=== PATIENT | male | born 1985 | race Caucasian/White ===

== ENCOUNTER 2016-11-22 10:48 | Emergency (ER) | payer SELFPAY ==
[~2016-11-22] VITALS: Ht 172.7 cm; Wt 110.0 kg
[~2016-11-22 10:48] MED LIST: DICL75TA5 PO; LEDI1TAB PO; OXYC1TAB8 PO; PROM25TA7 PO
[2016-11-22 10:50] VITALS: Ht 172.7 cm; Wt 110.0 kg
--- OUTSIDE RECORDS SUMMARY | 2016-11-22 10:53 | XMS REPORT | Continuity of Care Document ---
Author Author [facility] Organization [facility] Address Unknown Phone Unavailable Support Name Relationship Address Phone OTHER Caregiver Unknown [phone] ARLYN CAMACHO MD Caregiver [address] [place] [address] [place] [phone] DINA RAMOS Next Of Kin [id number] [place] [address] Insurance Providers Payer Name Policy Number Subscriber Name Relationship Self Pay Jose Alberto Ramos 16 Self Advance Directives Directive Response Recorded Date/Time Advanced Directives Type None 10/31/14 7:40am Problems Medical Problems Problem Onset Date Status RUQ pain Unknown Active RUQ pain Unknown Active Medications Medication Dose Route Sig Days/Qty Instructions Order Date Discontinued Date Status Tramadol HCl 100 Mg PO THREE TIMES A DAY PRN PAIN Take 2 (50 mg) tablets , by mouth, every 6 hours as needed 10/31/14 Active Promethazine HCl 1 Tab-Cap PO Every 6 Hours For NAUSEA &/OR VOMITING 15 Qty 10/31/14 Active Tramadol HCl 50 Mg PO Q6H/0300,0900,1500,2100 For PAIN 10 Qty 10/31/14 Active Social History Social History Problem Response Recorded Date/Time Hx Alcohol Use No 2014 7:47am Query Response Start Date Stop Date Smoking Status Former smoker Hospital Discharge Instructions No hospital discharge instructions. Plan of Care No plan of care. Functional Status Query Response Date Recorded Physical Hygiene Self 2014 7:47am Disabilities None 2014 7:47am Devices Used None 2014 7:47am Dressing Self 2014 7:47am Ambulation Self 2014 7:47am Diet Self 2014 7:47am Mental Status Alert Oriented 2014 11:53am Disabilities None 2014 7:47am Devices Used None 2014 7:47am Physical Hygiene Self 2014 7:47am Dressing Self 2014 7:47am Ambulation Self 2014 7:47am Diet Self 2014 7:47am Allergies, Adverse Reactions, Alerts Allergen Type Severity Reaction Status Last Updated Morphine Allergy Unknown Active 10/31/14 PCN Allergy Unknown Active 10/31/14 Immunizations No immunization records. Vital Signs Acute Vital Signs Vital Response Date/Time Temperature (Fahrenheit) 96.9 deg F (96.8 - 99.1) Temperature (Calculated Celsius) 36.25073 degrees C (36.0 - 37.3) Pulse Rate (adult) 76 bpm (60 - 100) Respiratory Rate 20 breaths/min (10 - 20) O2 Sat by Pulse Oximetry 96 % (90 - 100) Blood Pressure 95/49 mm Hg Height 5 ft 8 in Weight 190 lb Body Mass Index 28.0 kg/m^2 Results Test Source Date Result Interp. Ref. Range Comments Urinalysis Comment 2014 8:42am Microscopic not ind. - Has specimen been collected/obtained? Y Urine Blood 2014 8:42am Negative - Has specimen been collected/obtained? Y Urine Bilirubin 2014 8:42am Negative - Has specimen been collected/obtained? Y Urine Urobilinogen 2014 8:42am 0.2 EU/DL - Has specimen been collected/obtained? Y Urine Ketones 2014 8:42am Negative - Has specimen been collected/obtained? Y Urine Glucose (UA) 2014 8:42am Negative - Has specimen been collected/obtained? Y Urine Protein 2014 8:42am Negative - Has specimen been collected/obtained? Y Urine Nitrite 2014 8:42am Negative - Has specimen been collected/obtained? Y Urine Leukocyte Esterase 2014 8:42am Negative - Has specimen been collected/obtained? Y Urine pH 2014 8:42am 5.0 - Has specimen been collected/ obtained? Y Urine Specific [place] 2014 8:42am >=1.030 H - Has specimen been collected/obtained? Y Urine Turbidity 2014 8:42am Clear - Has specimen been collected/obtained? Y Urine Color 2014 8:42am Yellow - Has specimen been collected/obtained? Y Urine Collection Type 2014 8:42am Cleancatch-midstream - Has specimen been collected/obtained? Y Lipase 2014 8:16am 85 U/L N 23-300 Amylase Level 2014 8:16am 50 U/L N 30-110 Alanine Aminotransferase (ALT/SGPT) 2014 8:16am 90 U/L H 21 -72 Aspartate Amino Transf (AST/SGOT) 2014 8:16am 49 U/L N 17- 59 Albumin/Globulin Ratio 2014 8:16am 1.2 RATIO N 1.1-2.2 Globulin 2014 8:16am 3.4 G/DL N 2.4-3.6 Albumin 2014 8:16am 4.0 G/DL N 3.5-5.0 Total Protein 2014 8:16am 7.4 G/DL N 6.3-8.2 Alkaline Phosphatase 2014 8:16am 76 U/L N 38-126 Total Bilirubin 2014 8:16am 0.60 MG/DL N 0.20-1.30 Calcium Level 2014 8:16am 9.4 MG/DL N 8.4-10.2 Calculated Osmolality 2014 8:16am 276 MOSM/KG N 261-280 Glucose Level 2014 8:16am 124 MG/DL H 75-110 Glomerular Filtration Rate Calc 2014 8:16am 113 - BUN/Creatinine Ratio 2014 8:16am 16 RATIO N 6-26 Creatinine 2014 8:16am 0.8 MG/DL N 0.8-1.5 Blood Urea Nitrogen 2014 8:16am 13.0 MG/DL N 9-20 Anion Gap 2014 8:16am 8 MEQ/L N 5-15 Carbon Dioxide Level 2014 8:16am 29 MEQ/L N 22-30 Chloride Level 2014 8:16am 106 MEQ/L N 98-107 Potassium Level 2014 8:16am 3.6 MEQ/L N 3.6-5 Sodium Level 2014 8:16am 143 MEQ/L N 134-144 Turbidity 2014 8:16am < 20 0-20 Chemistry Specimen Hemolysis 2014 8:16am 16 N 0-25 0-25: No Hemolysis.26-70: Slight Hemolysis - can falsely elevate K and Urine Protein. 71-285: Moderate Hemolysis - can falsely elevate K, Troponin I, CA 19-9, PTH, CSF GLucose, and Urine Protein, and can falsely decrease Phenytoin. 286-999: Gross Hemolysis - can falsely elevate K, Troponin I, CA 19-9, PTH, CSF Glucose, and Urine Protine, and can falsely decrease Phenytoin. Recommend specimen recollection. Icterus Index 2014 8:16am < 2 0-7 Immature Granulocyte # (Auto) 2014 8:16am 0.02 T/MM3 N 0.00 -0.03 Basophils # (Auto) 2014 8:16am 0.0 T/MM3 N 0-0.2 Eosinophils # (Auto) 2014 8:16am 0.1 T/MM3 N 0-0.5 Monocytes # (Auto) 2014 8:16am 0.7 T/MM3 N 0-0.8 Lymphocytes # (Auto) 2014 8:16am 1.8 T/MM3 N 1-4.8 Neutrophils # (Auto) 2014 8:16am 3.9 T/MM3 N 1.8-7.7 Immature Granulocyte % (Auto) 2014 8:16am 0.3 % N 0.0-0.5 Basophils (%) (Auto) 2014 8:16am 0.3 % N 0-2 Eosinophils (%) (Auto) 2014 8:16am 1.8 % N 0-4 Monocytes (%) (Auto) 2014 8:16am 10.0 % H 0-9.0 Lymphocytes (%) (Auto) 2014 8:16am 27.1 % N 23-45 Neutrophils (%) (Auto) 2014 8:16am 60.5 % N 33-66 Mean Platelet Volume 2014 8:16am 9.2 UM3 L 9.4-12.4 Platelet Count 2014 8:16am 164 T/MM3 N 130-400 RDW Standard Deviation 2014 8:16am 43.3 FL N 36.9-50.2 Mean Corpuscular Hemoglobin Concent 2014 8:16am 34.0 GM/DL N 31-37 Mean Corpuscular Hemoglobin 2014 8:16am 32.1 UUG N 26-34 Mean Corpuscular Volume 2014 8:16am 94.4 UM3 N 80-100 Hematocrit 2014 8:16am 44.1 % N 41-53 Hemoglobin 2014 8:16am 15.0 GM/DL N 13.5-17.5 Red Blood Count 2014 8:16am 4.67 M/MM3 N 4.50-5.90 White Blood Count 2014 8:16am 6.5 T/MM3 N 4.5-11.0 Name: JOSE ALBERTO RAMOS Unit #: [id number] : 1985 Sex: M Loc / Svc: ED DOS: 10/31/14 Signed Report #: [id number] DIAGNOSTIC IMAGING REPORT TYPE OF EXAM: ABDOMEN ACUTE (INC. CHEST) Dictated By: LEIGHANN SANDY MD Indication: ITS.REASON: ABD PAIN ABDOMEN ACUTE (INC. CHEST): Comparison: FINDINGS: The lungs are clear. There is no abnormal airspace opacity, pleural effusion or pneumothorax identified. The heart size, pulmonary vasculature and mediastinum are within normal limits. There is no free air on the upright view. The bowel gas pattern demonstrates a few air-fluid levels centrally in the periumbilical region within nondilated bowel. Gas is seen throughout the large bowel to the level of the rectum. Moderate stool is seen throughout the colon. Surgical clips are again seen in the right upper quadrant consistent with prior cholecystectomy. The bony structures are grossly unremarkable. IMPRESSION: 1. No acute cardiopulmonary abnormality. 2. There is mild localized ileus pattern in the periumbilical region for which follow-up is recommended as indicated clinically. 3. Prior cholecystectomy.. . Procedures No known history of procedures. Encounters Encounter Location Date/Time Departed Emergency Room [facility] 10/31/14 7:34am Recent Diagnosis
--- OUTSIDE RECORDS SUMMARY | 2016-11-22 10:53 | XMS REPORT | Referral Summary ---
Author Author [facility] Organization [facility] Address Unknown Phone Unavailable Care Team Providers Care Food Mixer Repairer Name Role Phone Tosin Argueta Primary Care Physician [phone] Encounter VC Date(s): 04/16/15 - 04/16/15 [facility] [address] [place], [place] [address] Final: ABDOMINAL PAIN, UNSPECIFIED SITE Discharge Disposition: Without Being Seen Attending Physician: Tom Loo MD Admitting Physician: Tom Loo MD Vital Signs Most recent to 1 oldest [Reference Range]: Temperature Oral 36.9 degC [35.8-37.3 degC] (04/16/15 1:05 PM) Peripheral Pulse 102 bpm Rate [60-100 bpm] *HI* (04/16/15 1:05 PM) Respiratory Rate 14 br/min [14-20 br/min] (04/16/15 1:05 PM) Blood Pressure 125/87 mmHg [90-140/60-90 mmHg] (04/16/15 1:05 PM) SpO2 96 % (04/16/15 1:05 PM) Problem List Condition Effective Dates Status Health Status Informant Hepatitis/Jaundice(C Resolved onfirmed) IBS(Confirmed) Resolved Kidney Resolved disease/Stones(Confi rmed) Obesity(Confirmed) Active patient Sexually transmitted Resolved disease(Confirmed) Tobacco Active patient user(Confirmed) Ulcer(Confirmed) Resolved Allergies, Adverse Reactions, Alerts Substance Reaction Severity Status morphine rash Active penicillin Adverse Reaction Active Medications doxepin 10 mg oral capsule 10 mg 1 caps, Oral, Bedtime (once a day), # 30 caps, 5 Refill(s), Pharmacy: [facility] 1 caps Oral Bedtime (once a day) Start Date: 05/12/15 Status: Ordered Percocet 10/325 oral tablet 1 tabs, Oral, q4hr, as needed for pain, # 10 tabs, 0 Refill(s) Start Date: 05/12/15 Status: Ordered promethazine 25 mg, Oral, q6hr, 0 Refill(s) Start Date: 04/04/15 Status: Ordered traMADol 50 mg oral tablet 2 tabs, Oral, TID, 0 Refill(s) Start Date: 05/26/14 Status: Ordered Results No data available for this section Immunizations No data available for this section Procedures Procedure Date Related Diagnosis Body Site ACL injury tear1 Cholecystectomy MCL - Repair of medial collateral ligament2 1left knee 2left knee Social History Social History Type Response Smoking Status Current every day smoker; Tobacco use per day: Pt states he is currently smoking 2 cigarettes daily. Assessment and Plan No data available for this section
--- OUTSIDE RECORDS SUMMARY | 2016-11-22 10:53 | XMS REPORT | Referral Summary ---
Author Author [facility] Organization [facility] Address Unknown Phone Unavailable Care Team Providers Care Seed Cutter Name Role Phone CesarkavonTosin Primary Care Physician [phone] Encounter Date(s): 05/12/15 - 05/12/15 [facility] [address] [place], [place] [address] Discharge Diagnosis: Hepatitis C Discharge Diagnosis: Irritable bowel syndrome Discharge Disposition: 01-Home or Self Care Attending Physician: Tyrel Yanez MD Admitting Physician: Tyrel Yanez MD Vital Signs Most recent to 1 oldest [Reference Range]: Peripheral Pulse 84 bpm Rate [60-100 bpm] (05/12/15 2:52 PM) Blood Pressure 122/76 mmHg [90-140/60-90 mmHg] (05/12/15 2:52 PM) Problem List Condition Effective Dates Status [...] day), # 30 caps, 5 Refill(s), Pharmacy: [facility] 1 caps Oral Bedtime (once [...] smoking 2 cigarettes daily. Assessment and Plan Extracted from: Title: Ambulatory Patient Education Author: Tyrel Yanez MD Date: [facility] Hepatitis C Hepatitis C is a viral infection of the liver. Infection may go undetected for months or years because symptoms may be absent or very mild. Chronic liver disease is the main danger of hepatitis C. This may lead to scarring of the liver (cirrhosis), liver failure, and liver cancer. CAUSES Hepatitis C is caused by the hepatitis C virus (HCV). Formerly, hepatitis C infections were most commonly transmitted through blood transfusions. In the early , routine testing of donated blood for hepatitis C and exclusion of blood that tests positive for HCV began. Now, HCV is most commonly transmitted from person to person through injection drug use, sharing needles, or sex with an infected person. A caregiver may also get the infection from exposure to the blood of an infected patient by way of a cut or needle stick. SYMPTOMS Acute Phase Many cases of acute HCV infection are mild and cause few problems.Some people may not even realize they are sick.Symptoms in others may last a few weeks to several months and include: Feeling very tired. Loss of appetite. Nausea. Vomiting. Abdominal pain. Dark yellow urine. Yellow skin and eyes (jaundice). Itching of the skin. Chronic Phase Between 50% to 85% of people who get HCV infection become "chronic carriers." They often have no symptoms, but the virus stays in their body. They may spread the virus to others and can get long-term liver disease. Many people with chronic HCV infection remain healthy for many years. However, up to 1 in 5 chronically infected people may develop severe liver diseases including scarring of the liver (cirrhosis), liver failure, or liver cancer. DIAGNOSIS Diagnosis of hepatitis C infection is made by testing blood for the presence of hepatitis C viral particles called RNA. Other tests may also be done to measure the status of current liver function, exclude other liver problems, or assess liver damage. TREATMENT Treatment with many antiviral drugs is available and recommended for some patients with chronic HCV infection. Drug treatment is generally considered appropriate for patients who: Are 18 years of age or older. Have a positive test for HCV particles in the blood. Have a liver tissue sample (biopsy) that shows chronic hepatitis and significant scarring (fibrosis). Do not have signs of liver failure. Have acceptable blood test results that confirm the wellness of other body organs. Are willing to be treated and conform to treatment requirements. Have no other circumstances that would prevent treatment from being recommended (contraindications). All people who are offered and choose to receive drug treatment must understand that careful medical follow up for many months and even years is crucial in order to make successful care possible. The goal of drug treatment is to eliminate any evidence of HCV in the blood on a long-term basis. This is called a "sustained virologic response" or SVR. Achieving a SVR is associated with a decrease in the chance of life-threatening liver problems, need for a liver transplant, liver cancer rates, and liver-related complications. Successful treatment currently requires taking treatment drugs for at least 24 weeks and up to 72 weeks. An injected drug (interferon) given weekly and an oral antiviral medicine taken daily are usually prescribed. Side effects from these drugs are common and some may be very serious. Your response to treatment must be carefully monitored by both you and your caregiver throughout the entire treatment period. PREVENTION There is no vaccine for hepatitis C. The only way to prevent the disease is to reduce the risk of exposure to the virus. Avoid sharing drug needles or personal items like toothbrushes, razors, and nail clippers with an infected person. Healthcare workers need to avoid injuries and wear appropriate protective equipment such as gloves, gowns, and face masks when performing invasive medical or nursing procedures. HOME CARE INSTRUCTIONS To avoid making your liver disease worse: Strictly avoid drinking alcohol. Carefully review all new prescriptions of medicines with your caregiver. Ask your caregiver which drugs you should avoid. The following drugs are toxic to the liver, and your caregiver may tell you to avoid them: Isoniazid. Methyldopa. Acetaminophen. Anabolic steroids (muscle-building drugs). Erythromycin. Oral contraceptives ( control pills). Check with your caregiver to make sure medicine you are currently taking will not be harmful. Periodic blood tests may be required. Follow your caregiver's advice about when you should have blood tests. Avoid a sexual relationship until advised otherwise by your caregiver. Avoid activities that could expose other people to your blood. Examples include sharing a toothbrush, nail clippers, razors, and needles. Bed rest is not necessary, but it may make you feel better. Recovery time is not related to the amount of rest you receive. This infection is contagious. Follow your caregiver's instructions in order to avoid spread of the infection. SEEK IMMEDIATE MEDICAL CARE IF: You have increasing fatigue or weakness. You have an oral temperature above 102 F (38.9 C), not controlled by medicine. You develop loss of appetite, nausea, or vomiting. You develop jaundice. You develop easy bruising or bleeding. You develop any severe problems as a result of your treatment. MAKE SURE YOU: Understand these instructions. Will watch your condition. Will get help right away if you are not doing well or get worse. Document Released: 08/22/2001 Document Revised: 11/16/2012 Document Reviewed: [facility] Patient Information 2015 [employer]. This information is not intended to replace advice given to you by your health care provider. Make sure you discuss any questions you have with your health care provider. No follow up information was provided. Extracted from: Title: GI Office Visit Note Author: Tyrel Yanez MD Date: 05/12/15 Assessment/Plan Impression: 1. Hepatitis Cwith excellent response to treatment 2. Abdominal discomfort and diarrheathis appears to be an irritable bowel type problem given thenegative major workup he has had Plan:I discussed with the patient is excellent news hepatitis C has cleared. We do need to check his viral level again in 3 months to make sure that he did get a sustained response. From the standpoint of his abdominal discomfort and diarrheaI cannot think of further workup is likely to be of help. He's had major workup in the past with upper endoscopy colonoscopyand has even hadhis gallbladder removed. He had an upper GI and small bowel series as wellwhen I first saw whitney mcbride that was unremarkable. His blood work has all been unremarkable. I discussed with him that I think this has to be an irritable bowel type problem. Is been no evidence of anyintestinal pathology. I'm going torestart him on some doxepin at 10 mg at night and we' ll slowly increase that and see if we can help with the discomfort. I told him I did not make it was a good idea to be on any pain medication
--- OUTSIDE RECORDS SUMMARY | 2016-11-22 10:53 | XMS REPORT | Continuity of Care Document ---
Author Author [facility] Organization [facility] Address Unknown Phone Unavailable Allergies Active Description Code Type Severity Reaction Onset Reported/Identified Relationship to Patient Clinical Status Yes Penicillins Penicillins Drug Allergy Unknown N/A 11/16/2011 Yes penicillin NKMA N/A Adverse Reaction 01/04/2014 Yes penicillin NKMA N/A Adverse Reaction 01/04/2014 Yes morphine NKMA N/A rash 04/04/2015 Yes morphine NKMA N/A rash 04/04/2015 Medications Problems Date Dx Coded Attending Type Code Diagnosis Diagnosed By 04/19/2015 Tom Loo MD Reason 789.00 ABDOMINAL PAIN, UNSPECIFIED SITE Procedures Results Test Result Range URINALYSIS, ROUTINE - 04/16/15 16:19 UA LEUKOCYTE ESTERASE DIPSTICK NEGATIVE NEGATIVE UA NITRITE DIPSTICK NEGATIVE NEGATIVE UA PROTEIN DIPSTICK NEGATIVE NEGATIVE UA GLUCOSE DIPSTICK NEGATIVE NEGATIVE UA KETONE DIPSTICK NEGATIVE NEGATIVE UA UROBILINOGEN DIPSTICK NORMAL NORMAL UA BILIRUBIN DIPSTICK NEGATIVE NEGATIVE UA BLOOD DIPSTICK NEGATIVE NEGATIVE UA SPECIFIC GRAVITY 1.025 1.015-1.025 UR PH 6.0 5.0-7.0 Microbiology CHEM/HEM PROFILE-BEDSIDE - 04/16/15 16:27 POTASSIUM 4.1 mmol/L 3.5-5.3 METHOD Bedside ANION GAP 15 mmol/L 10-20 METHOD Bedside GLUCOSE 91 mg/dL 70-99 BLOOD UREA NITROGEN 7 mg/dL 7-20 CREATININE 1.0 mg/dL 0.7-1.3 HEMOGLOBIN 15.3 gm/dL 14.0-18.0 HEMATOCRIT 45.0 % 40.0-54.0 SODIUM 141 mmol/L 135-148 CHLORIDE 105 mmol/L 98-110 CARBON DIOXIDE 26 mmol/L 21-32 CALCIUM IONIZED 4.9 mg/dL 4.5-5.3 Microbiology Encounters ACCT No. Visit Date/Time Discharge Status Pt. Type Provider Facility Loc./Unit Complaint [id number] 04/16/2015 14:48:00 2014 18:54:00 DIS Emergency Jesus Alberto CHEEMA, [facility] [id number] 11/20/2011 11:18:00 2011 23:59:59 [facility] Outpatient
--- OUTSIDE RECORDS SUMMARY | 2016-11-22 10:53 | XMS REPORT | Continuity of Care Document ---
Author Author [facility] Organization [facility] Address Unknown Phone Unavailable Support Name Relationship Address Phone CAREY HOPSON DO Caregiver [address] [place] [address] MALINI FROST MD Caregiver [address] [place] [address] [place] [address] OTHER Caregiver Unknown [phone] DINA RAMOS Next Of Kin [address] [place] [address] Insurance Providers Payer Name Policy Number Subscriber Name Relationship Self Pay Jose Alberto Ramos 16 Self Problems Medical Problems Problem Onset Date Status RUQ pain Unknown Active RUQ pain Unknown Active RUQ pain Unknown Active Nausea & vomiting Unknown Active Fracture of fifth metacarpal bone of right hand Unknown Active Elevated LFTs Unknown Active Abdominal pain Unknown Active Fracture of fifth metacarpal bone of right hand Unknown Active Medications Medication Dose Route Sig Days/Qty Instructions Order Date Discontinued Date Status Promethazine HCl 1 Tab-Cap PO Every 6 Hours For NAUSEA &/OR VOMITING 15 Qty 10/31/14 Active Tramadol HCl 50 Mg PO Q6H/0300,0900,1500,2100 For PAIN 10 Qty Take 1 tablet, by mouth, every 6 hours. 10/31/14 Active Tramadol HCl 50 Mg PO Q6H/0300,0900,1500,2100 For PAIN 20 Qty 11/14/14 Active Ondansetron 4 Mg PO EVERY 4 HOURS For NAUSEA 12 Qty Oral Disintegrating Tablet 11/14/14 Active Social History Social History Problem Response Recorded Date/Time Hx Substance Use Y METH LAST 09/04/14 11/14/2014 10:06am Hx Alcohol Use No 11/14/2014 10:06am Query Response Start Date Stop Date Smoking Status Current every day smoker Hospital Discharge Instructions No hospital discharge instructions. Plan of Care No plan of care. Functional Status Query Response Date Recorded Physical Hygiene Self November 14, 2014 10:06am Disabilities None November 14, 2014 10:06am Devices Used None November 14, 2014 10:06am Dressing Self November 14, 2014 10:06am Ambulation Self November 14, 2014 10:06am Diet Self November 14, 2014 10:06am Mental Status Alert Oriented November 14, 2014 10:06am Disabilities None November 14, 2014 10:06am Devices Used None November 14, 2014 10:06am Physical Hygiene Self November 14, 2014 10:06am Dressing Self November 14, 2014 10:06am Ambulation Self November 14, 2014 10:06am Diet Self November 14, 2014 10:06am Allergies, Adverse Reactions, Alerts Allergen Type Severity Reaction Status Last Updated Penicillin Allergy Unknown Active 11/14/14 Morphine Allergy Unknown Active 11/14/14 Immunizations Name Given Type Hx Influenza Vaccination Y 06/21 Historical Hx Influenza Vaccination Y 06/21 Historical Vital Signs Acute Vital Signs Vital Response Date/Time Temperature (Fahrenheit) 97.1 deg F (96.8 - 99.1) Temperature (Calculated Celsius) 36.57001 degrees C (36.0 - 37.3) Pulse Rate (adult) 75 bpm (60 - 100) Respiratory Rate 16 breaths/min (10 - 20) O2 Sat by Pulse Oximetry 96 % (90 - 100) Blood Pressure 111/70 mm Hg Height 5 ft 8 in Weight 193 lb Body Mass Index 29.0 kg/m^2 Results Test Source Date Result Interp. Ref. Range Comments Alanine Aminotransferase (ALT/SGPT) November 14, 2014 10:42am 140 U/L H 21- 72 Albumin November 14, 2014 10:42am 4.2 G/DL N 3.5-5.0 Albumin/Globulin Ratio November 14, 2014 10:42am 1.2 RATIO N 1.1-2.2 Alkaline Phosphatase November 14, 2014 10:42am 90 U/L N 38-126 Amylase Level November 14, 2014 10:42am 40 U/L N 30-110 Anion Gap November 14, 2014 10:42am 14 MEQ/L N 5-15 Aspartate Amino Transf (AST/SGOT) November 14, 2014 10:42am 64 U/L H 17-59 BUN/Creatinine Ratio November 14, 2014 10:42am 15 RATIO N 6-26 Basophils # (Auto) November 14, 2014 10:42am 0.0 T/MM3 N 0-0.2 Basophils (%) (Auto) November 14, 2014 10:42am 0.3 % N 0-2 Blood Urea Nitrogen November 14, 2014 10:42am 12.0 MG/DL N 9-20 Calcium Level November 14, 2014 10:42am 9.5 MG/DL N 8.4-10.2 Calculated Osmolality November 14, 2014 10:42am 278 MOSM/KG N 261-280 Carbon Dioxide Level November 14, 2014 10:42am 25 MEQ/L N 22-30 Chemistry Specimen Hemolysis November 14, 2014 10:42am < 15 0-25 0-25: No Hemolysis.26-70: Slight Hemolysis - can falsely elevate K and Urine Protein. 71-285: Moderate Hemolysis - can falsely elevate K, Troponin I, CA 19-9, PTH, CSF GLucose, and Urine Protein, and can falsely decrease Phenytoin. 286-999: Gross Hemolysis - can falsely elevate K, Troponin I, CA 19-9, PTH, CSF Glucose, and Urine Protine, and can falsely decrease Phenytoin. Recommend specimen recollection. Chloride Level November 14, 2014 10:42am 106 MEQ/L N 98-107 Creatinine November 14, 2014 10:42am 0.8 MG/DL N 0.8-1.5 Eosinophils # (Auto) November 14, 2014 10:42am 0.1 T/MM3 N 0-0.5 Eosinophils (%) (Auto) November 14, 2014 10:42am 1.7 % N 0-4 Globulin November 14, 2014 10:42am 3.5 G/DL N 2.4-3.6 Glomerular Filtration Rate Calc November 14, 2014 10:42am 113 - Glucose Level November 14, 2014 10:42am 89 MG/DL N 75-110 Hematocrit November 14, 2014 10:42am 45.0 % N 41-53 Hemoglobin November 14, 2014 10:42am 15.3 GM/DL N 13.5-17.5 Icterus Index November 14, 2014 10:42am < 2 0-7 Immature Granulocyte # (Auto) November 14, 2014 10:42am 0.01 T/MM3 N 0.00- 0.03 Immature Granulocyte % (Auto) November 14, 2014 10:42am 0.2 % N 0.0-0.5 Lipase November 14, 2014 10:42am 71 U/L N 23-300 Lymphocytes # (Auto) November 14, 2014 10:42am 1.5 T/MM3 N 1-4.8 Lymphocytes (%) (Auto) November 14, 2014 10:42am 25.5 % N 23-45 Mean Corpuscular Hemoglobin November 14, 2014 10:42am 32.3 UUG N 26-34 Mean Corpuscular Hemoglobin Concent November 14, 2014 10:42am 34.0 GM/DL N 31-37 Mean Corpuscular Volume November 14, 2014 10:42am 95.1 UM3 N 80-100 Mean Platelet Volume November 14, 2014 10:42am 9.8 UM3 N 9.4-12.4 Monocytes # (Auto) November 14, 2014 10:42am 0.9 T/MM3 H 0-0.8 Monocytes (%) (Auto) November 14, 2014 10:42am 14.3 % H 0-9.0 Neutrophils # (Auto) November 14, 2014 10:42am 3.5 T/MM3 N 1.8-7.7 Neutrophils (%) (Auto) November 14, 2014 10:42am 58.0 % N 33-66 Platelet Count November 14, 2014 10:42am 173 T/MM3 N 130-400 Potassium Level November 14, 2014 10:42am 4.0 MEQ/L N 3.6-5 RDW Standard Deviation November 14, 2014 10:42am 44.2 FL N 36.9-50.2 Red Blood Count November 14, 2014 10:42am 4.73 M/MM3 N 4.50-5.90 Sodium Level November 14, 2014 10:42am 145 MEQ/L H 134-144 Total Bilirubin November 14, 2014 10:42am 0.70 MG/DL N 0.20-1.30 Total Protein November 14, 2014 10:42am 7.7 G/DL N 6.3-8.2 Turbidity November 14, 2014 10:42am < 20 0-20 Urinalysis Comment November 14, 2014 11:48am Microscopic not ind. - Has specimen been collected/obtained? Y Urine Bilirubin November 14, 2014 11:48am Negative - Has specimen been collected/obtained? Y Urine Blood November 14, 2014 11:48am Negative - Has specimen been collected/obtained? Y Urine Collection Type November 14, 2014 11:48am Cleancatch-midstream - Has specimen been collected/obtained? Y Urine Color November 14, 2014 11:48am Yellow - Has specimen been collected/obtained? Y Urine Glucose (UA) November 14, 2014 11:48am Negative - Has specimen been collected/obtained? Y Urine Ketones November 14, 2014 11:48am Negative - Has specimen been collected/obtained? Y Urine Leukocyte Esterase November 14, 2014 11:48am Negative - Has specimen been collected/obtained? Y Urine Nitrite November 14, 2014 11:48am Negative - Has specimen been collected/obtained? Y Urine Protein November 14, 2014 11:48am Negative - Has specimen been collected/obtained? Y Urine Specific [place] November 14, 2014 11:48am 1.020 - Has specimen been collected/obtained? Y Urine Turbidity November 14, 2014 11:48am Clear - Has specimen been collected/obtained? Y Urine Urobilinogen November 14, 2014 11:48am 0.2 EU/DL - Has specimen been collected/obtained? Y Urine pH November 14, 2014 11:48am 7.5 - Has specimen been collected/ obtained? Y White Blood Count November 14, 2014 10:42am 6.0 T/MM3 N 4.5-11.0 Name: JOSE ALBERTO RAMOS Unit #: [id number] : 1985 Sex: M Loc / Svc: ED DOS: 11/14/14 Signed Report #: [id number] DIAGNOSTIC IMAGING REPORT TYPE OF EXAM: ABDOMEN ACUTE (INC. CHEST) Dictated By: BRIANNA SALINAS MD Indication: ITS.REASON: RUQ pain / History Hep C ABDOMEN ACUTE (INC. CHEST): Comparison: 2014 FINDINGS: The lungs are clear. There is no abnormal airspace opacity, pleural effusion or pneumothorax identified. Calcified granulomas. The heart size, pulmonary vasculature and mediastinum are within normal limits. There is no free air on the upright view. The bowel gas pattern is nonobstructive and nonspecific. Gas is seen in nondilated small and large bowel to the level of the rectum. Moderate stool is seen throughout the colon. The bony structures are grossly unremarkable. Cholecystectomy clips. IMPRESSION: 1. No acute cardiopulmonary abnormality. 2. No evidence of acute obstruction or free air. No significant changes in the appearance of the chest or abdomen. . Procedures Procedure Status Date Provider(s) HYDRATE IV INFUSION ADD-ON completed 10/31/14 THER/PROPH/DIAG INJ IV PUSH completed 10/31/14 TX/PRO/DX INJ NEW DRUG ADDON completed 10/31/14 TX/PRO/DX INJ NEW DRUG ADDON completed 10/31/14 Encounters Encounter Location Date/Time Departed Emergency Room [facility] 11/14/14 9:56am Departed Emergency Room [facility] 10/31/14 7:34am Recent Diagnosis
--- OUTSIDE RECORDS SUMMARY | 2016-11-22 10:53 | XMS REPORT | Referral Summary ---
Author Author [facility] Organization [facility] Address Unknown Phone Unavailable Care Team Providers Care Concrete Mixer Name Role Phone CesarkavonTosin Primary Care Physician [phone] Encounter VC Date(s): 04/04/15 - 04/04/15 [facility] [address] [place] [address] Discharge Diagnosis: Hepatitis-C Discharge Disposition: 01-Home or Self Care Attending Physician: Tyrel Yanez MD Admitting Physician: Tyrel Yanez MD Vital Signs Most recent to 1 oldest [Reference Range]: Peripheral Pulse 76 bpm Rate [60-100 bpm] (04/04/15 10:29 AM) Blood Pressure 110/72 mmHg [90-140/60-90 mmHg] (04/04/15 10:29 AM) Problem List Condition Effective Dates Status Health [...] day), # 30 caps, 5 Refill(s), Pharmacy: [facility] 1 caps Oral Bedtime (once a day) Start Date: 05/12/15 Status: Ordered Percocet 10/325 oral tablet 1 tabs, Oral, q4hr, as needed for pain, # 10 tabs, 0 Refill(s) Start Date: 05/12/15 Status: Ordered promethazine 25 mg, Oral, q6hr, 0 Refill(s) Start Date: 7/28/15 Status: Ordered traMADol 50 mg oral tablet [...] daily. Assessment and Plan Extracted from: Title: GI Office Visit Note Author: Tyrel Yanez MD Date: 04/04/15 Assessment/Plan Impression: Chronic hepatitis C Abdominal discomfort cause this is unclear I don't think this is related to his liver. This may be partly a reflux-type problem. Plan: The patient will continue his are bony. He will be on it for a full 8 weeks. We will recheck his viral level at that time and if it's negative then we'll recheck it again in 3 months.
[2016-11-22] MEDS ORDERED: NO ROUTINE MEDS (11:13)
--- NOTE | 2016-11-22 11:25 | NUR ---
PROVIDER DR SPANGLER IN TO SEE PATIENT.
--- NOTE | 2016-11-22 11:29 | ERPDOC ---
Departure Disposition Decision Date: Nov 22, 2016 Disposition Decision Time: 13:03 Disposition: 01 DISCHARGED HOME, SELF-CARE Impression Impression Impression: Primary Impression: Renal calculus, right Severity: Mild Condition: Stable Seen By: Physician only Referrals: MEAGAN SANABRIA (Family) Patient Instructions: Chronic Abdominal Pain (ED) Problems/Meds/Labs Reviewed?: Yes Medications reviewed and manag: Yes Additional Instructions: You have a stone in the right kidney. This is not dangerous as it is. You will need to see your primary care provider to establish care for this. Typically this is not a pain related issue, and does not require narcotics for treatment. Zofran 4 mg tablet every 6 hours as needed for nausea. Mobic 15 mg tablets daily for pain. Follow up care ordered?: Yes Mental Status: Alert Scripts Meloxicam (Mobic) 15 Mg Tablet 1 TAB PO DAILY, #30 TAB Prov: ANDRA SPANGLER MD 11/22/16 Ondansetron (Zofran Odt) 4 Mg Tab.rapdis 4 MG PO Q6HR for NAUSEA, #30 TAB Oral disintegrating tablet Prov: ANDRA SPANGLER MD 11/22/16 HPI - Abdominal Pain General Chief Complaint: Abdominal Pain Stated Complaint: POSS KIDNEY STONES Time Seen by Provider: 11:25 HPI - Abdominal Pain Initial Comments 31-year-old male with right flank pain radiating around to the front. This is been going on for a week and half to 2 weeks. He lives approximately and hour and half away did go to the emergency room there, had a CT done and says he was told he had a "liver stone". He was given Phenergan to help with the pain and nausea. When he left the emergency department, he felt better. On getting home he did not he states he only took 2 of the Phenergan and lost the rest. He came up here to see his girlfriend Around for a couple days to try feel better, now his pain is bad enough that he needs to be seen. He states he has no stinging or burning when he urinates, no blood in the urine but is overall pain as an 8-10 out of 10. No fever no chills , no nausea vomiting, no diarrhea. He is not sleeping well because of the pain. He states he has an appointment next week with his primary care provider, uncertain of the name. Allergies: Coded Allergies: Penicillins (Verified Allergy, Unknown, 11/22/16) morphine (Verified Allergy, Unknown, 11/22/16) Past History Past Medical History Hx Echocardiogram: No GI: GERD Infectious: hepatitis C Psychological: alcohol abuse, drug abuse Surgical History Denies Surgeries Family History Family PMH: FOUND: other Vaccines Hx Influenza Vaccination: Yes (06/21) Social History Smoking Status: Unknown if ever smoked Substance Use Type: other (denies any current use.) Alcohol Intake: occasionally Record Review Pertinent history updated: Yes Review of Systems GI Upper Abdomen: see HPI Lower Abdomen: see HPI General: see HPI All other Systems All Other Systems: Reviewed and Negative Physical Exam General General Nourishment: obese General Body Habitus: well groomed Vitals and Pain First Documented Vital Signs Date Time Temp Pulse Resp B/P Pulse Ox O2 Delivery O2 Flow Rate FiO2 11/22/16 10:50 97.6 102 16 131/76 98 Room Air Weight: Kilograms: 110.000 Height (feet): 5 Height (inches): 8.00 Triage Pain Scale: Normal Exams: Head: Normocephalic w/o trauma Chest/Resp: Clear all [place], with good airflow, and symmetry bilaterally CV: Regular rate and rhythm, without murmur or gallop, Pulses 2+ all extremities, capillary refill, <2 seconds all ext., no pedal edema noted Abdomen: Bowel sounds positive, non-distended, no hepatosplenomegaly, masses or bruits noted Neurologic: Patient is alert, and oriented, cranial nerves, motor/sensory/ cerebellar, exams w/o gross deficits, to observation Psychiatric: Patient exhibits, appropriate attention, emotion and affect Abdomen (brief) Comments Nonspecific tenderness to right Differential Diagnoses Considering: Appendicitis, Biliary Colic, Bowel Obstruction, Constipation, Diverticulitis, Renal Colic, UTI Progress Results/Orders Orders Procedure Category Date Status Time Iv Lock (Ed Only) EDM 11/22/16 Transmitted 11:30 Nothing By Mouth (Ed EDM 11/22/16 Transmitted Only) 11:30 Cbc W/Auto LAB 11/22/16 Complete Diff-Reflex Manual 11:30 Cmp - Comprehensive LAB 11/22/16 Complete Metabolic 11:30 Lipase LAB 11/22/16 Complete 11:30 Ua, Dip Wreflex LAB 11/22/16 Complete Microsc & Stitchdown Thread Laster 11:30 Ct Abd/Pelvis W/O CT 11/22/16 Resulted Contrast 11:30 Normal Saline (Normal PHA 11/22/16 Complete Saline Iv) 11:30 Ondansetron Inj PHA 11/22/16 Complete (Zofran) 11:30 Ketorolac (Toradol) PHA 11/22/16 Complete 11:30 G.I. Cocktail PHA 11/22/16 Complete (/Maalox/Lidocaine 12:30 Lab Results Laboratory Tests Test 11/22/16 11:16 11/22/16 11:53 Urine Collection Type Voided-not cc-midstr Urine Color Yellow Urine Turbidity Clear Urine pH 5.5 Urine Specific [place] 1.025 Urine Protein Negative Urine Glucose (UA) Negative Urine Ketones Negative Urine Blood Negative Urine Nitrite Negative Urine Bilirubin Negative Urine Urobilinogen 0.2EU/DL Urine Leukocyte Esterase Negative Urinalysis Comment Microscopic not ind. White Blood Count 7.1T/MM3 Red Blood Count 5.06M/MM3 Hemoglobin 16.2GM/DL Hematocrit 46.8% Mean Corpuscular Volume 92.5UM3 Mean Corpuscular Hemoglobin 32.0UUG Mean Corpuscular Hemoglobin Concent 34.6GM/DL RDW Standard Deviation 41.1FL Platelet Count 182T/MM3 Mean Platelet Volume 10.2UM3 Immature Granulocyte % (Auto) 0.1% Neutrophils (%) (Auto) 67.1% Lymphocytes (%) (Auto) 22.8% Monocytes (%) (Auto) 8.8% Eosinophils (%) (Auto) 1.1% Basophils (%) (Auto) 0.1% Absolute Immature Granulocyte (auto 0.01T/MM3 Absolute Neutrophils (auto) 4.7T/MM3 Absolute Lymphocytes (auto) 1.6T/MM3 Absolute Monocytes (auto) 0.6T/MM3 Absolute Eosinophils (auto) 0.1T/MM3 Absolute Basophils (auto) 0.0T/MM3 Turbidity < 20 Sodium Level 145MEQ/L Potassium Level 4.2MEQ/L Chloride Level 109MEQ/L Carbon Dioxide Level 25MEQ/L Anion Gap 11MEQ/L Blood Urea Nitrogen 13.0MG/DL Creatinine 1.0MG/DL Glomerular Filtration Rate Calc 86 BUN/Creatinine Ratio 13RATIO Glucose Level 94MG/DL Calculated Osmolality 279MOSM/KG Calcium Level 9.4MG/DL Total Bilirubin 0.50MG/DL Icterus Index < 2 Aspartate Amino Transf (AST/SGOT) 22U/L Alanine Aminotransferase (ALT/SGPT) 29U/L Alkaline Phosphatase 76U/L Total Protein 7.9G/DL Albumin 4.3G/DL Globulin 3.6G/DL Albumin/Globulin Ratio 1.2RATIO Lipase 87U/L Chemistry Specimen Hemolysis < 15 Medications Current ED Medications Sodium Chloride (Normal Saline IV) 1,000 ml @ 1,000 mls/hr Q1H ONCE IV Last administered on 11/22/16 11:46; Start 11/22/16 at 11:30; Stop 11/22/16 at 12:29 ; Status DC Ondansetron HCl (Zofran) 4 mg O ONCE IV Last administered on 11/22/16 11:47; Start 11/22/16 at 11:30; Stop 11/22/16 at 11:33; Status DC Ketorolac Tromethamine (Toradol) 30 mg O ONCE IV Last administered on 11:46; Start 11/22/16 at 11:30; Stop 11/22/16 at 11:33; Status DC Pharmacy Profile Note (/Maalox/ Lidocaine Soln) 30 ml O ONCE PO Last administered on 11/22/16 12:30; Start 11/22/16 at 12:30; Stop 11/22/16 at 12:31 ; Status DC Progress Progress Labs are normal. UA shows no blood. CT abdomen and pelvis shows right intrarenal stone, nonobstructing, not in the ureter. At this point I would treat nausea, but no narcotics. Start him on Mobic 15 mg daily along with Zofran 4 mg tab every 6 hours when necessary nausea. He is to return and see his primary care physician for chronic management. ANDRA SPANGLER MD Nov 22, 2016 11:28
[2016-11-22] MEDS ORDERED: ONDANSETRON 4mg/2ml INJECTION IV ONE (11:30)
[2016-11-22] MEDS ORDERED: NORMAL SALINE 1,000 ML IV ONE (11:30)
[2016-11-22] MEDS ORDERED: KETOROLAC 30mg/ml INJECTION IV ONE (11:30)
[2016-11-22 11:38] LABS: BLOOD, URINE NEGATIVE (NEGATIVE); COLOR,URINE YELLOW (YELLOW); LEUKOCYTE ESTERASE ,URINE NEGATIVE (NEGATIVE); NITRITE,URINE NEGATIVE (NEGATIVE); UROBILINOGEN,URINE 0.2 EU/DL (NORMAL)
--- NOTE | 2016-11-22 11:56 | NUR ---
STATUS PATIENT ASKED FOR A GI COCKTAIL. THIS RN RELAYED THIS TO DR SPANGLER. NO NEW ORDERS AT THIS TIME.
[2016-11-22 12:00] LABS: BASOPHILS % (AUTO) 0.1 % (0-2); EOSINOPHILS # (AUTO) 0.1 T/MM3 (0-0.5); EOSINOPHILS % (AUTO) 1.1 % (0-4); HCT - HEMATOCRIT 46.8 % (41-53); HGB - HEMOGLOBIN 16.2 GM/DL (13.5-17.5); IMMATURE GRANULOCYTE # (AUTO) 0.01 T/MM3 (0.00-0.03); IMMATURE GRANULOCYTE % (AUTO) 0.1 % (0.0-0.5); LYMPHOCYTES # (AUTO) 1.6 T/MM3 (1-4.8); LYMPHOCYTES % (AUTO) 22.8 % (23-45); MEAN CORPUSCULAR HGB CONC(MCHC 34.6 GM/DL (31-37); MEAN CORPUSCULAR VOLUME 92.5 UM3 (80-100); MEAN PLATELET VOLUME 10.2 UM3 (9.4-12.4); MONOCYTES # (AUTO) 0.6 T/MM3 (0-0.8); MONOCYTES % (AUTO) 8.8 % (0-9.0); NEUTROPHILS #(AUTO)-ABSOLUTE 4.7 T/MM3 (1.8-7.7); NEUTROPHILS % (AUTO) 67.1 % (33-66); RED BLOOD COUNT 5.06 M/MM3 (4.50-5.90); WBC - WHITE BLOOD COUNT 7.1 T/MM3 (4.5-11.0)
--- NOTE | 2016-11-22 12:00 | NUR ---
TO CT PER W/C.
[2016-11-22 12:10] LABS: ALBUMIN 4.3 G/DL (3.5-5.0); ALBUMIN/GLOBULIN RATIO 1.2 RATIO (1.1-2.2); ALKALINE PHOSPHATASE 76 U/L (38-126); ALT (SGPT) 29 U/L (21-72); ANION GAP 11 MEQ/L (5-15); AST (SGOT) 22 U/L (17-59); BUN/CREATININE RATIO 13 RATIO (6-26); CALCIUM 9.4 MG/DL (8.4-10.2); CHLORIDE 109 MEQ/L (98-107); CO2 - CARBON DIOXIDE 25 MEQ/L (22-30); GLOMERULAR FILTRATION RATE 86; GLUCOSE 94 MG/DL (75-110); LIPASE 87 U/L (23-300); POTASSIUM 4.2 MEQ/L (3.6-5); SODIUM 145 MEQ/L (134-144); TOTAL PROTEIN 7.9 G/DL (6.3-8.2)
--- NOTE | 2016-11-22 12:15 | NUR ---
BACK FROM CT
[2016-11-22] MEDS ORDERED: G.I. COCKTAIL 30ml PO ONE (12:30)
--- NOTE | 2016-11-22 12:43 | DI ---
EXAM: CT ABD/PELVIS W/O CONTRAST COMPARISON: 03/28/2015. HISTORY: ITS.REASON: right-sided abdominal pain LOCATION OF DICTATION: [facility] TECHNIQUE: Axial images were obtained from the domes of the diaphragms to the ischial tuberosities without IV contrast. The study was reconstructed into thinner axial sections and in coronal and sagittal reformations. Study is reviewed in lung, soft tissue, bone and liver windows. The current CT scan was performed using radiation dose-reduction techniques. ABDOMEN AND PELVIS FINDINGS: LUNG BASES: There is a calcified nodule at the right lung base likely from old granulomatous disease. Lung bases are otherwise clear. Calcified right hilar lymph node is also noted. HEART: There may be a trace of pericardial effusion. LIVER: Calcification is seen at the anterior left lobe which may be related to old granulomatous disease. Otherwise unremarkable. GALLBLADDER: Unremarkable. SPLEEN: Soft tissue nodule seen anterior to the spleen likely representing an accessory splenule. PANCREAS: Unremarkable. ADRENAL GLANDS: Unremarkable. AORTA/IVC/VASCULATURE: Unremarkable. LYMPH NODES: No lymphadenopathy is identified. Small lymph nodes are noted, but are not pathologically enlarged. GENITOURINARY: There is a 3 mm and 2 mm calcification at the inferior pole of the left kidney. No right renal calculi are identified. There may be some hyperdensity along the medullary pyramids and medullary sponge kidney is a consideration. There is no evidence for obstructive uropathy, ureteral, or bladder calculi. BOWEL: Sigmoid diverticula are noted without evidence for acute diverticulitis. Scattered articularis seen throughout the remainder of the colon without acute inflammation identified. The terminal ileum is unremarkable. The appendix is unremarkable. The small bowel and duodenum appear unremarkable. The stomach garza are thickened but may be due to nondistention rather than gastritis although the latter is not excluded. ABDOMINAL/PELVIC WALL: Small umbilical defect without herniated loops of bowel. BONES: Unremarkable. Sclerotic lesion seen at the left femoral head likely representing a bone island. IMPRESSION: 1. Left renal calculi without evidence for obstructive uropathy, ureteral, or bladder stones. Possible medullary sponge kidney. 2. Colonic diverticula without evidence for acute diverticulitis. 3. The stomach garza are thickened but may be due to nondistention rather gastritis, although the latter is not excluded. 4. Evidence of old granulomatous disease. .
--- OUTSIDE RECORDS SUMMARY | 2016-11-22 12:45 | XMS REPORT | Continuity of Care Document ---
Author Author [facility] Organization [facility] Address Unknown Phone Unavailable Support Name Relationship Address Phone OTHER Caregiver Unknown [phone] ARLYN CAMACHO MD Caregiver [address] [place] [address] [place] [phone] DINA RAMOS Next Of Kin [address] [place] [address] Insurance Providers Payer Name Policy Number Subscriber [...] F (96.8 - 99.1) Temperature (Calculated Celsius) 36.26619 degrees C (36.0 - 37.3) Pulse Rate [...] specimen been collected/ obtained? Y Urine Specific [place] 2014 8:42am >=1.030 H - Has specimen [...] 4.5-11.0 Name: JOSE ALBERTO RAMOS Unit #: [id number] : 1985 Sex: M Loc / Svc: ED DOS: 10/31/14 Signed Report #: [id number] DIAGNOSTIC IMAGING REPORT TYPE OF EXAM: ABDOMEN [...] Encounters Encounter Location Date/Time Departed Emergency Room [facility] 10/31/14 7:34am Recent Diagnosis
--- OUTSIDE RECORDS SUMMARY | 2016-11-22 12:45 | XMS REPORT | Continuity of Care Document ---
Author Author [facility] Organization [facility] Address Unknown Phone Unavailable Allergies Active Description [...] Status Pt. Type Provider Facility Loc./Unit Complaint [id number] 04/16/2015 14:48:00 2014 18:54:00 DIS Emergency Jesus Alberto [facility]EMA, [facility] [id number] 11/20/2011 11:18:00 2011 23:59:59 [facility] Outpatient
--- OUTSIDE RECORDS SUMMARY | 2016-11-22 12:46 | XMS REPORT | Continuity of Care Document ---
Author Author [facility] Organization [facility] Address Unknown Phone Unavailable Support Name Relationship Address Phone CAREY HOPSON DO Caregiver [address] [place] [address] MALINI FROST MD Caregiver [address] [place] [address] [place] [address] OTHER Caregiver Unknown [phone] DINA RAMOS Next Of Kin [address] [place] [address] Insurance Providers Payer Name Policy Number [...] F (96.8 - 99.1) Temperature (Calculated Celsius) 36.31082 degrees C (36.0 - 37.3) Pulse Rate [...] Has specimen been collected/obtained? Y Urine Specific [place] November 14, 2014 11:48am 1.020 - Has [...] 4.5-11.0 Name: JOSE ALBERTO RAMOS Unit #: [id number] : 1985 Sex: M Loc / Svc: ED DOS: 11/14/14 Signed Report #: [id number] DIAGNOSTIC IMAGING REPORT TYPE OF EXAM: ABDOMEN [...] Encounters Encounter Location Date/Time Departed Emergency Room [facility] 11/14/14 9:56am Departed Emergency Room [facility] 10/31/14 7:34am Recent Diagnosis
--- NOTE | 2016-11-22 12:54 | NUR ---
STATUS PATIENT IS RATING PAIN 8/10 AND DRY HEAVING.
[2016-11-22] MEDS ORDERED: MELO15TA12 PO (13:06)
[2016-11-22] MEDS ORDERED: ONDA4TAB7 PO (13:06)
[2016-11-22 13:30] VITALS: BP 132/73; PULSE 79; RESP 16; TEMP 97.6; O2SAT 98
== END 2016-11-22 13:30 | disposition home or self-care (01) ==
LOC: ED 10:48
DX: N20.0 Calculus of kidney (principal)
CPT/HCPCS: 80053; 81003; 83690; 85025